=== PATIENT | female | born 1970 | race Caucasian/White ===

== ENCOUNTER 2018-07-24 14:10 | Emergency (ER) | payer SELFPAY ==
[~2018-07-24] VITALS: Ht 167.6 cm; Wt 59.1 kg
[2018-07-24 14:50] VITALS: BP 107/65
== END 2018-07-24 15:00 | disposition left against medical advice (07) ==
LOC: EMS 14:12
DX: R21 Rash and other nonspecific skin eruption (principal); Z53.21 Procedure and treatment not carried out due to patient leaving prior to being seen by health care provider

== ENCOUNTER 2018-07-31 07:40 | Emergency (ER) | payer SELFPAY ==
[~2018-07-31] VITALS: Ht 167.6 cm; Wt 61.8 kg
[2018-07-31] MEDS ORDERED: CEPH500 PO (07:48)
[2018-07-31] MEDS ORDERED: CETI-290 PO (07:48)
[2018-07-31] MEDS ORDERED: PRED10 PO (07:48)
[2018-07-31 10:26] VITALS: BP 123/76
== END 2018-07-31 10:27 | disposition home or self-care (01) ==
LOC: EMS 07:41
DX: L25.9 Unspecified contact dermatitis, unspecified cause (principal); F32.9 Major depressive disorder, single episode, unspecified

== ENCOUNTER 2020-07-28 13:46 | Emergency (ER) | payer MEDICAID ==
[~2020-07-28] VITALS: Ht 175.3 cm; Wt 59.1 kg
[~2020-07-28 13:46] MED LIST: CEPH500 PO; CETI-450 PO; PRED10 PO
[2020-07-28] MEDS ORDERED: IBUP-1506 PO (14:03)
[2020-07-28] MEDS ORDERED: DOXYCYCLINE HYCLATE 100 MG TABLET PO ONE (15:00)
[2020-07-28] MEDS ORDERED: SELENIUM SULFIDE 2.5% LOTION 120 ML BOTTLE TP ONE (15:00)
[2020-07-28 15:36] VITALS: BP 121/81
== END 2020-07-28 15:42 | disposition home or self-care (01) ==
LOC: EMS 14:28
DX: L03.811 Cellulitis of head [any part, except face] (principal); B35.0 Tinea barbae and tinea capitis; F32.9 Major depressive disorder, single episode, unspecified; G40.909 Epilepsy, unspecified, not intractable, without status epilepticus

== ENCOUNTER 2020-08-03 14:20 | Emergency (ER) | payer MEDICAID ==
[~2020-08-03] VITALS: Ht 175.3 cm; Wt 61.8 kg
[~2020-08-03 14:20] MED LIST changes: -CEPH500 PO; -CETI-450 PO; +IBUP-1506 PO; -PRED10 PO
[2020-08-03 14:37] VITALS: BP 112/83
[2020-08-03] MEDS ORDERED: FERR-82 PO (14:38)
== END 2020-08-03 15:28 | disposition home or self-care (01) ==
LOC: EMS 14:20
DX: L30.9 Dermatitis, unspecified (principal); F32.9 Major depressive disorder, single episode, unspecified; G43.909 Migraine, unspecified, not intractable, without status migrainosus; F15.90 Other stimulant use, unspecified, uncomplicated; Z79.899 Other long term (current) drug therapy

== ENCOUNTER 2020-08-17 15:31 | Emergency (ER) | payer MEDICAID ==
[~2020-08-17] VITALS: Ht 170.2 cm; Wt 59.1 kg
[~2020-08-17 15:31] MED LIST changes: +FERR-82 PO; -IBUP-1506 PO
[2020-08-17] MEDS ORDERED: ASPI-988 PO (15:57)
[2020-08-17 16:15] VITALS: BP 105/55
== END 2020-08-17 17:17 | disposition home or self-care (01) ==
LOC: EMS 15:31
DX: B35.4 Tinea corporis (principal); G43.909 Migraine, unspecified, not intractable, without status migrainosus; F32.9 Major depressive disorder, single episode, unspecified; F19.90 Other psychoactive substance use, unspecified, uncomplicated
CPT/HCPCS: 99283; Z7502